=== PATIENT | male | born 2000 | race Caucasian/White ===

== ENCOUNTER 2021-11-05 06:01 | Emergency (ER) | payer MEDICAID ==
[~2021-11-05] VITALS: Ht 167.6 cm; Wt 96.1 kg
[2021-11-05] MEDS ORDERED: KETOROLAC 60MG/2ML VIAL IM ONE (08:00)
[2021-11-05] MEDS ORDERED: HYDROCODONE/ACETAMINOPHEN 5/325MG TABLET PO ONE (11:00)
[2021-11-05] MEDS ORDERED: IBUP-2030 MT (11:29)
[2021-11-05] MEDS ORDERED: HYDR-4001 MT (11:29)
[2021-11-05 11:56] VITALS: BP 185/98
== END 2021-11-05 12:15 | disposition home or self-care (01) ==
LOC: ER 06:01
DX: S42.391A Other fracture of shaft of right humerus, initial encounter for closed fracture (principal); Y08.89XA Assault by other specified means, initial encounter; Y93.89 Activity, other specified; Y92.89 Other specified places as the place of occurrence of the external cause; Y99.8 Other external cause status; E11.9 Type 2 diabetes mellitus without complications
CPT/HCPCS: 29105; 73030; 73060; 96372; 99284; J1885